=== PATIENT | female | born 1955 | race Caucasian/White ===

== ENCOUNTER → 2019-04-15 | Outpatient (CLI) | payer MEDICARE ==
--- NOTE | 2019-04-15 13:03 | Diagnostic Imaging Report ---
INDICATION: Persistent right shoulder pain after lifting heavy luggage four months ago. FINDINGS: Two views. AP view and scapular Y view show good alignment of the glenohumeral joint. Articulating surfaces are smooth. AC joint shows good alignment with moderate hypertrophic change. No fracture. No soft tissue calcification. IMPRESSION: Moderate degenerative changes along the AC joint otherwise negative. Dictated by: Dictated on workstation # [id number]
== END ==
LOC: RAD FS 11:43
PROVIDERS: ATTEND Nurse Practitioner Family
DX: M19.011 Primary osteoarthritis, right shoulder (principal)
CPT/HCPCS: 73030

== ENCOUNTER → 2020-07-21 | Outpatient (CLI) | payer MEDICARE ==
--- NOTE | 2020-07-21 13:06 | Diagnostic Imaging Report ---
INDICATION: HIP PAIN RIGHT TECHNIQUE: 2 views of the right hip. CORRELATION STUDY: None FINDINGS: Images of the hip demonstrate no evidence for acute fracture. Alignment is anatomic. The femoral head acetabular relationship is unremarkable. The bony trabecular pattern is intact. Surgical clips over the lower abdomen and pelvis. IMPRESSION: 1. Negative for acute bony abnormality of the right hip. Dictated by: Dictated on workstation # [id number]
--- NOTE | 2020-07-21 13:08 | Diagnostic Imaging Report ---
INDICATION: Pelvic pain. Time of exam 11:25 AM AP view of the pelvis was obtained. Femoral acetabular alignment is normal. Joint spaces are well-maintained. Both femoral heads and necks are intact. No fractures are seen. Rami are intact. There are multiple surgical clips in the lower abdomen and pelvis. IMPRESSION: No acute bony abnormality is detected. Dictated by: Dictated on workstation # [id number]
--- NOTE | 2020-07-21 13:26 | Diagnostic Imaging Report ---
INDICATION: Elbow pain. COMPARISON: None available. TECHNIQUE: 4 radiographs of the right elbow dated 07/21/2020 FINDINGS: No acute fracture or dislocation. No destructive osseous process. No elbow joint effusion. No suspicious radiopaque foreign body. IMPRESSION: Unremarkable examination without acute osseous abnormality. Dictated by: Dictated on workstation # [id number]
== END ==
LOC: RAD FS 11:14
PROVIDERS: ATTEND Nurse Practitioner
DX: M25.551 Pain in right hip (principal); M25.521 Pain in right elbow
CPT/HCPCS: 72170; 73080; 73502